=== PATIENT | male | born 2000 | race Caucasian/White ===

== ENCOUNTER 2025-09-19 21:25 | Emergency (ER) | payer SELFPAY ==
[2025-09-19 21:12] VITALS: BP 132/85; PULSE 126; RESP 18; TEMP 36.6; O2SAT 95; BMI 26.5
--- NOTE | 2025-09-19 21:25 | CTR_ITS ---
PROCEDURE INFORMATION: Exam: CT Head Without Contrast Exam date and time: 09/19/2025 9:29 PM Age: 25 years old Clinical indication: Syncope and collapse; EMS arrival for syncopal episode TECHNIQUE: Imaging protocol: Computed tomography of the head without contrast. Radiation optimization: All CT scans at this facility use at least one of these dose optimization techniques: automated exposure control; mA and/or kV adjustment per patient size (includes targeted exams where dose is matched to clinical indication); or iterative reconstruction. COMPARISON: No relevant prior studies available. RADIATION DOSE METRICS: Total DLP (mGy-cm): 1072.38 FINDINGS: Brain: No evidence of acute intracranial hemorrhage. No midline shift. Normal differentiation of de jesus-white matter. Cerebral ventricles: Ventricles are normal in caliber. Paranasal sinuses: Visualized paranasal sinuses are clear. Mastoid air cells: Mastoid air cells are clear. Bones: No acute osseous findings. Soft tissues: Visualized superficial soft tissues are within normal limits. CT/CT head wo con* [id number] IMPRESSION: No acute intracranial findings.
--- NOTE | 2025-09-19 21:25 | XRR_ITS ---
PROCEDURE INFORMATION: Exam: XR Chest Exam date and time: 09/19/2025 9:35 PM Age: 25 years old Clinical indication: Other: Syncope; EMS arrival for syncopal episode TECHNIQUE: Imaging protocol: Radiologic exam of the chest. Views: 1 view. COMPARISON: No relevant prior studies available. FINDINGS: Lungs: Unremarkable. No consolidation. Pleural spaces: Unremarkable. No pleural effusion. No pneumothorax. Heart/Mediastinum: Unremarkable. No cardiomegaly. Bones/joints: Unremarkable. XR/XR chest 1V portable [id number] IMPRESSION: No acute findings.
[2025-09-19 21:34] LABS: Hematocrit 42.0 % (37-53); Hemoglobin 14.70 g/dL (11.27-16.99); Mean Corpuscular HGB Conc 35.0 g/dL (30-55); Mean Corpuscular Hemoglobin 32.5 pg (27-33); Mean Corpuscular Volume 92.9 fl (82-101); Nucleated Red Blood Cells % 0 %; Platelet Count 428 10^3/cmm (157-399); Red Blood Count 4.52 10^6/uL (3.85-5.65); White Blood Count 8.75 10^3/uL (3.29-11.43)
[2025-09-19 21:48] LABS: Albumin Level 4.8 g/dL (3.5-5.2); Alcohol Level 277 mg/dL (0-10); Alkaline Phosphatase 93 U/L (40-130); Anion Gap 19.5 (5-19); Blood Urea Nitrogen 19 mg/dL (6-20); Calcium 8.7 mg/dL (8.5-10.5); Carbon Dioxide 24 mmol/L (22-29); Chloride 102 mmol/L (98-107); Creatinine Clr Calc Pharmacy 89.0323; Globulin 3.2 g/dL (1.3-4.6); Glucose 125 mg/dL (65-115); Magnesium 2.2 mg/dL (1.7-2.3); Osmolality Calculated 298 mOsm/kg (285-295); Potassium 3.5 mmol/L (3.5-5.1); Sodium 142 mmol/L (136-145); Total Protein 8.0 g/dL (6.6-8.7)
--- NOTE | 2025-09-19 21:48 | ED_ITS ---
HPI - General Adult 2 General: Chief complaint: General Medical Stated complaint: etoh, unresponsive Time Seen by Provider: 09/19/25 21:33 History of Present Illness: Patient is a 25-year-old male who presents after an episode of loss of consciousness at home. Patient reports that he passed out and was found on the floor by family members. he has no clear recollection of the events leading up to the syncope, stating I just remember waking up on the floor. Family members reported possible choking. Patient denies being ill recently but admits to consuming alcohol today ( a few shots ) and smoking. he denies any prodromal symptoms such as nausea, though he states he doesn't clearly recall the events prior to losing consciousness. Patient denies any pain or discomfort following the event. he has no known history of seizures. It is unclear if he sustained any head trauma during the fall. Upon regaining consciousness, he recalls seeing people standing over him. Related Data Allergies Allergy/AdvReac Type Severity Reaction Status Date / Time No Known Allergies Allergy Verified 09/19/25 21:18 Physical Exam 2 Const: COMMON NORMALS: no acute distress and alert GENERAL APPEARANCE: c ooperative; not ill appearing and not frail appearing HENMT: COMMON NORMALS: normocephalic, atraumatic and Normal external nose present HEAD & SCALP: normocephalic and atraumatic FACE & SINUS: normal facial exam and face symmetric NOSE: Normal external nose present Eye: COMMON NORMALS: Equal, round and reactive pupils present and EOMs intact bilaterally PUPIL: Yes Equal, round and reactive pupils present Neck/C-Spine: GENERAL: Yes trachea midline Chest: CHEST: Yes Symmetrical chest wall rise Resp: COMMON NORMALS: normal respiratory effort, No retractions, No use of accessory muscles and clear to auscultation bilaterally AUSCULTATION: clear to auscultation bilaterally Cardio: COMMON NORMALS: regular rate and regular rhythm RATE: regular rate RHYTHM: regular rhythm GI: COMMON NORMALS: Normal to inspection, nondistended, normoactive bowel sounds present Extremity: COMMON NORMALS: no pedal edema Neuro: DREAD COMA SCALE: document GCS findings [place] coma scale eye opening: Spontaneous Dread coma scale verbal response: Orientated [place] coma scale motor response: Obey commands [place] coma scale total score: 15 S ENSORIUM/ORIENTATION: Yes alert CRANIAL NERVES: Yes CN normal except as noted COORDINATION/BALANCE: [id number] test normal SPEECH: speech normal SENSORY EXAM: Yes extremities (intact) MOTOR EXAM: Pronator motor function not present and Normal motor muscle tone present throughout COORDINATION: f [id number] test normal Psych: COMMON NORMALS: speech normal SPEECH: Yes normal speech Skin: COMMON NORMALS: no rashes or lesions noted GENERAL SKIN EXAM: no rashes or lesions noted Course 2 Vital Signs: Vital signs: Vital Signs Temperature 97.8 F 09/19/25 21:12 Pulse Rate 107 H 09/19/25 23:52 Respiratory Rate 18 09/19/25 21:12 Blood Pressure 124/81 09/19/25 23:52 Pulse Oximetry 100 09/19/25 23:52 Oxygen Delivery Me thod Room Air 09/19/25 23:39 Oxygen Flow Rate 2 09/19/25 22:16 [facility] - General Adult Medical Decision Making 25-year-old male was intoxicated at home. On further history from the family, he was eating a hamburger. He seemed to choke on the hamburger, turned blue, got stiff. He was rolled onto his back, at which point an epigastric thrust was given, and the airway cleared. He was tachycardic on arrival. Heart rate is much better now. 95-100. Blood pressure is normal. Saturations are normal on room air. CBC is not remarkable. His creatinine is 1.4. Otherwise BMP is not remarkable. His alcohol level is 277. CK is normal at 123. Lactic acid is mildly elevated at 2.8. He is given 1 L of fluid. Thiamine. Head CT is negative. Chest x-ray is nonacute. The patient's parents are with him. He and his parents are requesting any options available for alcoholic detoxification medically. We are not a detox facility at this facility. We did make a call to [facility] in [facility], as they are renowned facility for this. We obtained him a bed if he wishes to go. Parents state that they will drive him tonight if necessary. They are currently deciding. He will finish his fluid. He is stable medically for discharge at this point. Lab Data 09/19/25 20:54 09/19/25 20:54 Radiology Impressions Chest X-Ray 09/19/25 21:25 IMPRESSION: No acute findings. Head CT 09/19/25 21:25 IMPRESSION: No acute intracranial findings. Laboratory Results WBC 8.75 10^3/uL (3.29-11.43) 09/19/25 20:54 RBC 4.52 10^6/uL (3.85-5.65) 09/19/25 20:54 Hgb 14.70 g/dL (11.27-16.99) 09/19/25 20:54 Hct 42.0 % (37-53) 09/19/25 20:54 MCV 92.9 fl (82-101) 09/19/25 20:54 MCH 32.5 pg (27-33) 09/19/25 20:54 MCHC 35.0 g/dL (30-55) 09/19/25 20:54 RDW 12.3 % (12.1-15.1) 09/19/25 20:54 Plt Count 428 10^3/cmm (157-399) H 09/19/25 20:54 MPV 9.2 fL (7.4-10.4) 09/19/25 20:54 Neut % (Auto) 47.4 % 09/19/25 20:54 Lymph % (Auto) 40.2 % 09/19/25 20:54 [place] % (Auto) 9.1 % 09/19/25 20:54 Eos % (Auto) 2.3 % 09/19/25 20:54 Baso % (Auto) 0.7 % 09/19/25 20:54 Neut # (Auto) 4.14 10^3/uL (1.8-7.7) 09/19/25 20:54 Lymph # (Auto) 3.5 10^3/uL (0.8-4.8) 09/19/25 20:54 [place] # (Auto) 0.8 10^3/uL (0.2-0.9) 09/19/25 20:54 Eos # (Auto) 0.2 10^3/uL (0.0-0.8) 09/19/25 20:54 Baso # (Auto) 0.1 10^3/uL (0.0-0.1) 09/19/25 20:54 Nucleated RBC % (auto) 0 % 09/19/25 20:54 Nucleated RBCs # 0.0 /100WBC 09/19/25 20:54 Sodium 142 mmol/L (136-145) 09/19/25 20:54 Potassium 3.5 mmol/L (3.5-5.1) 09/19/25 20:54 Chloride 102 mmol/L (98-107) 09/19/25 20:54 Carbon Dioxide 24 mmol/L (22-29) 09/19/25 20:54 Anion Gap 19.5 (5-19) H 09/19/25 20:54 BUN 19 mg/dL (6-20) 09/19/25 20:54 Creatinine 1.4 mg/dL (0.7-1.2) H 09/19/25 20:54 GFR Calculation 62.3 mL/min (90-130) L 09/19/25 20:54 Glucose 125 mg/dL (65-115) H 09/19/25 20:54 Calculated Osmolality 298 mOsm/kg (285-295) H 09/19/25 20:54 Lactic Acid 2.8 mmol/L (0.5-2.2) H 09/19/25 20:54 Calcium 8.7 mg/dL (8.5-10.5) 09/19/25 20:54 Phosphorus 3.4 mg/dL (2.5-4.5) 09/19/25 20:54 Magnesium 2.2 mg/dL (1.7-2.3) 09/19/25 20:54 Total Bilirubin 0.4 mg/dL (0.15-1.2) 09/19/25 20:54 AST 5 U/L (0-40) 09/19/25 20:54 ALT < 5 U/L (0-41) 09/19/25 20:54 Alkaline Phosphatase 93 U/L (40-130) 09/19/25 20:54 Creatine Kinase 123 U/L (39-308) 09/19/25 20:54 Total Protein 8.0 g/dL (6.6-8.7) 09/19/25 20:54 Albumin 4.8 g/dL (3.5-5.2) 09/19/25 20:54 Globulin 3.2 g/dL (1.3-4.6) 09/19/25 20:54 Ethyl Alcohol 277 mg/dL (0-10) H 09/19/25 20:54 All radiology interpretation(s) finalized by discharge Discharge Plan Discharge Patient Disposition: Home Clinical Impression: Aspiration of food, Alcohol intoxication Condition: Stable Discharge Orders: Discharge ED (Routine); Ordered 09/19/25 Ordered By: José Luis Neff Referrals: Anton Mccormack MD [Primary Care Provider, [facility]] - 1-3 days Patient Instructions: Aspiration, Alcohol Intoxication (ED), Opioid Safety, Pain Management, Patient Portal & Claude Instructions Activity Restrictions/Additional Instructions: You have been medically cleared in the emergency department for an inpatient detoxification facility. Proceed to [facility] in [facility] as we discussed, as we spoke with them on the phone for the possibility of an available bed. Return to the emergency department for increasing shortness of breath, fever, chest discomfort, other concerning symptoms. Follow-up with your doctor this coming week, or upon discharge from the rehabilitation facility. Print Language: Tristanian Coding Level of Care Code ED [employer] Signal Technician for Valery Kelsey
[2025-09-19 21:50] LABS: Lactic Sepsis W/Reflex 2.8 mmol/L (0.5-2.2)
[2025-09-19 22:01] LABS: Alanine Aminotransferase < 5 U/L (0-41); Aspartate Amino Transferase 5 U/L (0-40)
--- NOTE | 2025-09-19 22:12 | ECG_ITS ---
[facility] Date: 2025-09-19 Pat Name: Holland Burns Department: Room: Gender: Male Malt Loader: : 2000 Requested By: José Luis Kamara Order Number: [id number] Rm MD: CHICO MANZO Measurements Intervals Freedom Rate: 111 P: 49 [place]: 175 QRS: 68 QRSD: 106 T: 43 QT: 333 QTc: 453 Interpretive Statements SINUS TACHYCARDIA ABNORMAL RHYTHM ECG No previous ECG available for comparison Electronically Signed On 09-19-2025 22:22:56 CDT by CHICO MANZO [email or web address]
[2025-09-19] MEDS: thiamine 100 mg/mL 2mL SDV IVP (22:14)
[2025-09-19] MEDS: metoprolol tartrate 1 mg/1 mL SDV 5 mL 2.5 MG IVP (22:15)
[2025-09-19 22:16] VITALS: BP 128/69; PULSE 144; O2SAT 99
[2025-09-19 22:34] LABS: Reflex Lactate Order REFLEX LACTIC ORDERD
[2025-09-19 23:39] VITALS: BP 124/81; PULSE 110; O2SAT 100
[2025-09-19 23:52] VITALS: BP 124/81; PULSE 107; O2SAT 100
== END 2025-09-19 23:55 | disposition home or self-care (01) ==
PROVIDERS: Emergency Provider Emergency Medicine; PCP Family Medicine
DX: T17.928A Food in respiratory tract, part unspecified causing other injury, initial encounter (principal); W44.F3XA Food entering into or through a natural orifice, initial encounter; F10.129 Alcohol abuse with intoxication, unspecified; Y90.8 Blood alcohol level of 240 mg/100 ml or more
CPT/HCPCS: 70450; 71045; 80053; 80307; 82550; 83605; 83735; 84100; 85025; 93005; 96361; 96374; 96375; 99285; J3411; J3490; J7030